=== PATIENT | female | born 1975 | race Hispanic/Latino ===

== ENCOUNTER 2019-07-22 17:09 | Inpatient (IN) | payer SELFPAY ==
[~2019-07-22] VITALS: Ht 167.6 cm; Wt 86.2 kg
[~2019-07-22 17:09] MED LIST: CEFUROXIME250 MG PO; FOLIC ACID1 MG PO; GLIMEPIRIDE4 MG PO; HUMIRA20 MG/0.4 SQ; LOSARTAN POTAS100 MG PO; MAGNESIUM250 MG PO; METHOTREXATE2.5 MG PO; METOPROLOL TART50 MG PO; POTASSIUM99 M1 PO; VITAMIN D31000 UNIT PO
[2019-07-22] MEDS ORDERED: PANTOPRAZOLE 40 MG 10ML VIAL IV STA (17:40)
[2019-07-22] MEDS ORDERED: ONDANSETRON HCL INJ 2MG/ML 2ML 2 MG/ML VIAL IV STA (17:40)
[2019-07-22] MEDS ORDERED: SODIUM CHLORIDE 0.9% 1000ML 1,000 ML IV STA (17:40)
[2019-07-22] MEDS ORDERED: MORPHINE SULFATE INJ 4 MG/ML INJ 1ML IV STA (17:40)
[2019-07-22 18:03] LABS: BILIRUBIN,URINE NEGATIVE (NEGATIVE); CLARITY,URINE SL CLOUDY (CLEAR); COLOR,URINE YELLOW (YELLOW); KETONES,URINE NEGATIVE (NEGATIVE); LEUKOCYTE ESTERASE ,URINE NEGATIVE (NEGATIVE); NITRITE,URINE NEGATIVE (NEGATIVE); PREGNANCY TEST, URINE NEGATIVE (NEGATIVE); PROTEIN,URINE DIPSTICK 1+ (NEGATIVE); URINE UROBILINOGEN 0.2 mg/dL (0.2 - 1)
[2019-07-22 18:04] LABS: BASOPHILS # (AUTO) 0.1 (0.0-0.1); BASOPHILS % 0.2 % (0.0-1.0); EOSINOPHILS # (AUTO) 0.2 (0.0-0.4); EOSINOPHILS % 0.8 % (0.0-6.0); HEMATOCRIT 45.2 % (34.2-44.1); HEMOGLOBIN 15.3 g/dL (12.0-16.0); LYMPHOCYTES # (AUTO) 1.2 (1.0-3.2); LYMPHOCYTES % 5.4 % (18.0-39.1); MEAN CORPUSCULAR HEMOGLOBIN 30.2 pg (28-32); MEAN CORPUSCULAR HGB CONC 33.8 g/dL (31-35); MEAN CORPUSCULAR VOLUME 89.3 fL (81-99); MONOCYTES # (AUTO) 1.1 (0.2-0.8); MONOCYTES % 4.8 % (4.4-11.3); NEUTROPHILS # (AUTO) 19.6 (2.1-6.9); NEUTROPHILS % 88.3 % (38.7-80.0); PLATELET COUNT 360 x10e3/uL (140-360); RED BLOOD COUNT 5.06 x10e6/uL (3.6-5.1); RED CELL DISTRIBUTION WIDTH 14.2 % (11.7-14.4)
[2019-07-22 18:10] LABS: INR 0.9; PROTHROMBIN TIME 12.6 seconds (11.9-14.5)
[2019-07-22 18:11] LABS: PARTIAL THROMBOPLASTIN TIME 26.5 seconds (23.8-35.5)
[2019-07-22 18:19] LABS: ALANINE AMINOTRANSFERASE 29 IU/L (0-55); ALBUMIN 3.8 g/dL (3.5-5.0); ALBUMIN/GLOBULIN RATIO 0.7 (0.8-2.0); ALKALINE PHOSPHATASE 76 IU/L (40-150); AMYLASE 51 U/L (25-125); ANION GAP 14.1 mmol/L (8-16); BLOOD UREA NITROGEN 11 mg/dL (7-26); BUN/CREATININE RATIO 11 (6-25); CARBON DIOXIDE 24 mmol/L (22-29); CHLORIDE 103 mmol/L (98-107); CREATINE KINASE 58 IU/L (29-168); CREATININE, SERUM 0.96 mg/dL (0.57-1.11); EST GLOMERULAR FILTRATION RATE > 60 ML/MIN (60-); GLUCOSE 133 mg/dL (74-118); LIPASE 127 U/L (8-78); POTASSIUM 4.1 mmol/L (3.5-5.1); SODIUM 137 mmol/L (136-145)
[2019-07-22] MEDS ORDERED: DIATRIZOATE MEGL/DIATRIZOA SOD 30 ML BTL PO ONE ×2 (18:21)
--- NOTE | 2019-07-22 18:21 | Diagnostic Imaging Report ---
EXAM: Gallbladder Ultrasound INDICATION: ^ABD PAIN ^Y COMPARISON: None. TECHNIQUE: Transverse and longitudinal images of the gallbladder were obtained. FINDINGS: Liver: Normal appearance measuring 14.3 cm Gallbladder: Stones/Sludge: None Wall: 0.2 cm Appearance: No wall thickening, pericholecystic fluid or hydrops. Sonographic Rapp's Sign: Negative Bile Ducts: Intrahepatic Ducts: No dilatation Extrahepatic Ducts: Common bile duct measures 0.4 cm, no dilatation Main portal vein normal in appearance measuring 0.9 cm with normal blood flow. Right kidney normal in appearance measuring 10.3 cm. Pancreas not well seen. Abdominal aorta and inferior vena cava unremarkable. Free Fluid: No ascites or pleural effusion IMPRESSION: Normal right upper quadrant ultrasound. Signed by: Dr. Brian Núñez M.D. on 07/22/2019 6:17 PM
[2019-07-22 18:37] LABS: AMORPHOUS SEDIMENT,URINE MODERATE (FEW); BACTERIA,URINE FEW /HPF; EPITHELIAL CELLS,URINE FEW /LPF; RBC,URINE 21-50 /HPF (0-5)
[2019-07-22] MEDS ORDERED: LEVOFLOXACIN 500MG/D5W 100ML 100 ML IV ONE (19:15)
[2019-07-22] MEDS ORDERED: METRONIDAZOLE 500MG/NS 100ML 100 ML IV ONE (19:15)
--- NOTE | 2019-07-22 19:58 | Diagnostic Imaging Report ---
EXAMINATION: CHEST SINGLE (PORTABLE) INDICATION: Vomiting. Stomach ache ^ERMD ORDER ^Y COMPARISON: December 19, 2015 FINDINGS: TUBES and LINES: None. LUNGS: Lungs are well inflated. Lungs are clear. There is no evidence of pneumonia or pulmonary edema. PLEURA: No pleural effusion or pneumothorax. HEART AND MEDIASTINUM: The cardiomediastinal silhouette is unremarkable. BONES AND SOFT TISSUES: No acute osseous lesion. Soft tissues are unremarkable. UPPER ABDOMEN: No free air under the diaphragm. IMPRESSION: No acute thoracic abnormality. Signed by: Dr. Brian Núñez M.D. on 07/22/2019 7:32 PM
[2019-07-22] MEDS ORDERED: SODIUM CHLORIDE 0.9% 250ML 250 ML ONE (20:07)
--- NOTE | 2019-07-22 20:10 | Diagnostic Imaging Report ---
EXAM: CT Abdomen and Pelvis WITH contrast INDICATION: Vomiting. Stomach pain. COMPARISON: December 19, 2015 TECHNIQUE: Abdomen and pelvis were scanned utilizing a multidetector helical scanner from the lung base to the pubic symphysis after administration of IV contrast. Coronal and sagittal reformations were obtained. Routine protocol was performed. Scan was performed when during portal venous phase. IV CONTRAST: 100 mL of Isovue 360 ORAL CONTRAST: Gastrografin COMPLICATIONS: None RADIATION DOSE: Total DLP: 683 mGy*cm Estimated effective dose: (DLP x 0.015 x size factor) mSv CTDIvol has been reviewed. It is below the limits set by the Radiation Protocol Committee (RPC). Dose modulation, iterative reconstruction, and/or weight based adjustment of the mA/kV was utilized to reduce the radiation dose to as low as reasonably achievable. FINDINGS: LINES and TUBES: None. LOWER THORAX: Unremarkable HEPATOBILIARY: No focal hepatic lesions. No biliary ductal dilation. GALLBLADDER: No radio-opaque stones or sludge. No wall thickening. SPLEEN: No splenomegaly. PANCREAS: No focal masses or ductal dilatation. ADRENALS: 1.3 cm right adrenal nodule likely adenoma. KIDNEYS/URETERS: Kidneys enhance symmetrically. No hydronephrosis. No cystic or solid mass lesions. No stones. GI TRACT: No abnormal distention, wall thickening, or evidence of bowel obstruction. Scattered diverticulosis without evidence of diverticulitis. The appendix is not clearly seen however, no inflammatory changes are seen in the right lower quadrant of the abdomen. PELVIC ORGANS/BLADDER: Heterogeneous uterus likely containing fibroids. LYMPH NODES: No lymphadenopathy. VESSELS: Unremarkable. PERITONEUM / RETROPERITONEUM: No free air or fluid. BONES: Unremarkable. SOFT TISSUES: Unremarkable. IMPRESSION: Scattered diverticulosis without evidence of diverticulitis. The appendix is not clearly seen however, no inflammatory changes are seen in the right lower quadrant of the abdomen. Heterogeneous uterus likely containing fibroids. Signed by: Dr. Brian Núñez M.D. on 07/22/2019 8:07 PM
[2019-07-22] MEDS ORDERED: MORPHINE SULFATE 2 MG/ML SYR 1ML IV PRN (20:15)
[2019-07-22] MEDS: SODIUM CHLORIDE 0.9% 1000ML 1,000 ML IV SCH (20:58)
[2019-07-22] MEDS: PIPER-TAZ 3.375 GM 50 ML IV SCH (20:58)
--- OUTSIDE RECORDS SUMMARY | 2019-07-22 21:25 | XMS REPORT ---
Author Author [facility], [place] Address Unknown Phone Unavailable Care Team Providers Care Veneer Stacker Name Role Phone STOKESPRAKASH Unavailable Unavailable Problems This patient has no known problems. Allergies, Adverse Reactions, Alerts This patient has no known allergies or adverse reactions. Medications This patient has no known medications. Results Test Description Test Time Test Comments Text Results Atomic Results Result Comments CT ABDOMEN/PELVIS W 2019-07-22 19:59:00 [place] [id number] [place] [id number] Patient Name: ELIDA VALENZUELA MR #: [id number] : 1975 Age/Sex: 43/F Req #: [id number] Adm Physician: Ordered by: PRAKASH VARELA HAND [employer]NEL [employer]ATER Report #: [id number] Location: ER Room/Bed: Procedure: [id number] CT/CT ABDOMEN/PELVIS W Exam Date: Exam Time: REPORT STATUS: Signed EXAM: CT Abdomen and Pelvis WITH contrast INDICATION: Vomiting. S tomach pain. COMPARISON: December 19, 2015 TECHNIQUE: Abdomen and pelvis were scanned utilizing a multidetector helical scanner from the lung base to the pubic symphysis after administration of IV contrast. Coronal and sagittal reformations were obtained. Routine protocol was performed. Scan was performed when during portal venous phase. IV CONTRAST: 100 mL of Isovue 360 ORAL CONTRAST: Gastrografin COMPLICATIONS: None RADIATION DOSE: Total DLP: 683 mGy*cm Estimated effective dose: (DLP x 0.015 x size factor) mSv CTDIvol has been reviewed. It is below the limits set by the Radiation Protocol Committee (RPC). Dose modulation, iterative reconstruction, and/or weight based adjustment of the mA/kV was utilized to reduce the radiation dose to as low as reasonably achievable. FINDINGS: LINES and TUBES: None. LOWER THORAX: Unremarkable HEPATOBILIARY: No focal hepatic lesions. No biliary ductal dilation. GALLBLADDER: No radio-opaque stones or sludge. No wall thickening. SPLEEN: No splenomegaly. PANCREAS: No focal masses or ductal dilatation. ADRENALS: 1.3 cm right adrenal nodule likely adenoma. KIDNEYS/URETERS: Kidneys enhance symmetrically. No hydronephrosis. No cystic or solid mass lesions. No stones. GI TRACT: No abnormal distention, wall thickening, or evidence of bowel obstruction. Scattered diverticulosis without evidence of diverticulitis. The appendix is not clearly seen however, no inflammatory changes are seen in the right lower quadrant of the abdomen. PELVIC ORGANS/BLADDER: Heterogeneous uterus likely containing fibroids. LYMPH NODES: No lymphadenopathy. VESSELS: Unremarkable. PERITONEUM / RETROPERITONEUM: No free air or fluid. BONES: Unremarkable. SOFT TISSUES: Unremarkable. IMPRESSION: Scattered diverticulosis without evidence of diverticulitis. The appendix is not clearly seen however, no inflammatory changes are seen in the right lower quadrant of the abdomen. Heterogeneous uterus likely containing fibroids. Signed by: Dr. Brian Núñez M.D. on 07/22/2019 8:07 PM Dictated By: BRIAN NÚÑEZ MD, MD 06 Transcribed By: NICO on 07/22/192006 COPY TO: PRAKASH VARELA [employer]ATER CHEST SINGLE (PORTABLE) 2019-07-22 19:31:00 [place] [address] Patient Name: ELIDA VALENZUELA MR #: [id number] : 1975 Age/Sex: 43/F Req #: [id number] Adm Physician: Ordered by: PRAKASH VARELA NP Report #: [id number] Location: ER Room/Bed: Procedure: DX/CHEST SINGLE (PORTABLE) Exam Date: Exam Time: REPORT STATUS: Signed EXAMINATION: CHEST SINGLE (PORTABLE) INDICATION: Vomiting. Stomach ache ERMD ORDER Y COMPARISON: December 19, 2015 FINDINGS: TUBES and LINES: None. LUNGS: Lungs are well inflated. Lungs are clear. There is no evidence of pneumonia or pulmonary edema. PLEURA: No pleural effusion or pneumothorax. HEART AND MEDIASTINUM: The cardiomediastinal silhouette is unremarkable. BONES AND SOFT TISSUES: No acute osseous lesion. Soft tissues are unremarkable. UPPER ABDOMEN: No free air under the diaphragm. IMPRESSION: No acute thoracic abnormality. Signed by: Dr. Brian Núñez M.D. on 07/22/2019 7:32 PM Dictated By: BRIAN NÚÑEZ MD, MD 31 Transcribed By: NICO on 07/22/191931 COPY TO: PRAKASH VARELA [employer]ATER [facility] 2019-07-22 18:15:00 [place] [address] Patient Name: ELIDA VALENZUELA MR #: [id number] : 1975 Age/Sex: 43/F Req #: [id number] Adm Physician: Ordered by: PRAKASH VARELA HAND [employer]ATER Report #: [id number] Location: ER Room/Bed: Procedure: [id number] US/US GALLBLADDER Exam Date: 07/22/19 Exam Time: 1750 REPORT STATUS: Signed EXAM: Gallbladder Ultrasound INDICATION: ABD PAIN Y COMPARISON: None. TECHNIQUE: Transverse and longitudinal images of the gallbladder were obtained. FINDINGS: Liver: Normal appearance measuring 14.3 cm Gallbladder: Stones/Sludge: None Wall: 0.2 cm Appearance: No wall thickening, pericholecystic fluid or hydrops. Sonographic Rapp's Sign: Negative Bile Ducts: Intrahepatic Ducts: No dilatation Extrahepatic Ducts: Common bile duct measures 0.4 cm, no dilatation Main portal vein normal in appearance measuring 0.9 cm with normal blood flow. Right kidney normal in appearance measuring 10.3 cm. Pancreas not well seen. Abdominal aorta and inferior vena cava unremarkable. Free Fluid: No ascites or pleural effusion IMPRESSION: Normal right upper quadrant ultrasound. Signed by: Dr. Brian Núñez M.D. on 07/22/2019 6:17 PM Dictated By: BRIAN NÚÑEZ MD, MD 16 Transcribed By: NICO on 07/22/191816 COPY TO: PRAKASH VARELA NP
[2019-07-22] MEDS: MORPHINE SULFATE INJ 4 MG/ML INJ 1ML IV PRN (22:20)
[2019-07-22] MEDS: ONDANSETRON HCL INJ 2MG/ML 2ML 2 MG/ML VIAL IV PRN (22:20)
[2019-07-23] MEDS ORDERED: IOPAMIDOL 370 MG/ML 200 ML INFUS..BTL INJ ONE (02:08)
[2019-07-23] MEDS ORDERED: SODIUM CHLORIDE 0.9% 50ML 50 ML ONE (02:08)
[2019-07-23] MEDS: MORPHINE SULFATE INJ 4 MG/ML INJ 1ML IV PRN ×2 (02:20→13:57)
[2019-07-23] MEDS: ONDANSETRON HCL INJ 2MG/ML 2ML 2 MG/ML VIAL IV PRN ×3 (02:20→13:58)
[2019-07-23] MEDS: SODIUM CHLORIDE 0.9% 1000ML 1,000 ML IV SCH ×3 (05:17→20:06)
--- NOTE | 2019-07-23 05:43 | NUR ---
H&P cc: nausea/vomiting/abdominal pain HPI: 44yoF, PCP , developed N/V/abdominal pain with N/V/D for 1 day. PMH: PNA, DM2, Diverticulosis, rheumatoid arthritis PShx: none Allergies; see emr Fh/Sh; single; no etoh/cigs Meds; see MAR ROS: no f/c/s/cp/sob/skin rash/dizziness/leg pain v/s; revd PE tired appearing anicteric ns1s2 mod bs soft; tender epigastrium no e/t skin dry n. affect labs/meds; revd A/P: 44yoF Acute gastroenteritis- bacterial- abx/ivf DM2- hab1c/lipids Diverticulosis- high fiber diet Rheumatoid arthritis- f/u outpt Obesity- caloric restriction needed BMI 30 Prop; scd; ppi Dispo; Chirag Paulino MD, PhD.
[2019-07-23] MEDS: METRONIDAZOLE 500MG/NS 100ML 100 ML IV SCH ×3 (06:30→22:00)
[2019-07-23 06:55] LABS: BASOPHILS % 0.2 % (0.0-1.0); EOSINOPHILS # (AUTO) 0.1 (0.0-0.4); EOSINOPHILS % 0.5 % (0.0-6.0); HEMATOCRIT 35.4 % (34.2-44.1); LYMPHOCYTES # (AUTO) 1.6 (1.0-3.2); LYMPHOCYTES % 12.2 % (18.0-39.1); MEAN CORPUSCULAR HEMOGLOBIN 30.6 pg (28-32); MEAN CORPUSCULAR HGB CONC 33.9 g/dL (31-35); MEAN CORPUSCULAR VOLUME 90.3 fL (81-99); MONOCYTES # (AUTO) 0.9 (0.2-0.8); MONOCYTES % 7.2 % (4.4-11.3); NEUTROPHILS # (AUTO) 10.2 (2.1-6.9); NEUTROPHILS % 79.4 % (38.7-80.0); PLATELET COUNT 263 x10e3/uL (140-360); RED BLOOD COUNT 3.92 x10e6/uL (3.6-5.1); RED CELL DISTRIBUTION WIDTH 14.4 % (11.7-14.4)
--- NOTE | 2019-07-23 07:03 | NUR ---
DR PURDY AT PT BEDSIDE
[2019-07-23 07:14] LABS: ALANINE AMINOTRANSFERASE 40 IU/L (0-55); ALBUMIN 2.8 g/dL (3.5-5.0); ALBUMIN/GLOBULIN RATIO 0.7 (0.8-2.0); ALKALINE PHOSPHATASE 51 IU/L (40-150); ANION GAP 10.4 mmol/L (8-16); BLOOD UREA NITROGEN 9 mg/dL (7-26); BUN/CREATININE RATIO 11 (6-25); CALCIUM 8.2 mg/dL (8.4-10.2); CARBON DIOXIDE 23 mmol/L (22-29); CHLORIDE 106 mmol/L (98-107); EST GLOMERULAR FILTRATION RATE > 60 ML/MIN (60-); GLUCOSE 122 mg/dL (74-118); POTASSIUM 4.4 mmol/L (3.5-5.1); SODIUM 135 mmol/L (136-145)
[2019-07-23] MEDS: PIPER-TAZ 3.375 GM 50 ML IV SCH ×3 (07:43→20:58)
[2019-07-23 08:09] LABS: CHOL/HDL RATIO 3.8 (3.0-3.6)
[2019-07-23] MEDS: PANTOPRAZOLE 40 MG 10ML VIAL IV SCH (09:36)
[2019-07-23] MEDS: METOPROLOL TARTRATE 50 MG TAB PO SCH ×2 (09:36→17:00)
--- NOTE | 2019-07-23 12:15 | NUR ---
RCD PT FROM ER BY BED PT IS ALERT AND ORIENTED VITALS CHECKED PT RESTING ON BED ADMISSION ASSESSMENT DONE PT SAID SHE STARTED THE ABDOMINAL PAIN ON YESTURDAY ON THE MEDIAL PART OF THE ABDOMEN HAD BOWEL MOVEMENT ON YESTURDAY SHE VOIDED IV PATENT AND RUNNING 125 ML /HR PT NPO INSTRUCTED PT AND FAMILY REGARDING HOSPITAL POLICY AND ROUTINE BED LOW AND LOCKED CALL LIGHT IN REACH
[2019-07-23 12:53] VITALS: BP 113/65
[2019-07-23 13:41] VITALS: BP 113/65
[2019-07-23 13:49] VITALS: BP 113/65
[2019-07-23 16:24] VITALS: BP 122/70
[2019-07-23 17:24] LABS: BASOPHILS % 0.1 % (0.0-1.0); EOSINOPHILS # (AUTO) 0.2 (0.0-0.4); EOSINOPHILS % 2.3 % (0.0-6.0); HEMATOCRIT 37.3 % (34.2-44.1); HEMOGLOBIN 12.3 g/dL (12.0-16.0); LYMPHOCYTES # (AUTO) 1.4 (1.0-3.2); LYMPHOCYTES % 14.8 % (18.0-39.1); MEAN CORPUSCULAR HEMOGLOBIN 30.1 pg (28-32); MEAN CORPUSCULAR VOLUME 91.4 fL (81-99); MONOCYTES # (AUTO) 0.9 (0.2-0.8); MONOCYTES % 9.5 % (4.4-11.3); NEUTROPHILS # (AUTO) 6.8 (2.1-6.9); NEUTROPHILS % 72.7 % (38.7-80.0); PLATELET COUNT 252 x10e3/uL (140-360); RED BLOOD COUNT 4.08 x10e6/uL (3.6-5.1); RED CELL DISTRIBUTION WIDTH 14.4 % (11.7-14.4)
--- NOTE | 2019-07-23 17:30 | NUR ---
PAGED AND NOTIFIED THE [facility] REPORT TO DR PURDY THERE IS NO NEW ORDERS
--- NOTE | 2019-07-23 18:18 | NUR ---
PT C/O HEAD ACHE AND SHE NEED TO EAT PAGED AND NOTIFIED DR PURDY GOT NEW ORDERS
[2019-07-23] MEDS: ACETAMINOPHEN 325 MG TAB PO PRN (18:35)
--- NOTE | 2019-07-23 18:43 | NUR ---
PT RESTING ON BED BED SIDE REPORT GIVEN TO ONCOMING NURSE
[2019-07-23 20:00] VITALS: BP 130/70
[2019-07-23 21:00] VITALS: BP 127/76
[2019-07-24] VITALS: BP 97/56
[2019-07-24] MEDS: PIPER-TAZ 3.375 GM 50 ML IV SCH ×2 (02:00→08:00)
[2019-07-24 04:00] VITALS: BP 100/55
[2019-07-24] MEDS: SODIUM CHLORIDE 0.9% 1000ML 1,000 ML IV SCH (04:06)
[2019-07-24] MEDS: METRONIDAZOLE 500MG/NS 100ML 100 ML IV SCH (06:00)
[2019-07-24] MEDS ORDERED: FLAGYL500 MG PO (06:50)
[2019-07-24] MEDS ORDERED: KEFLEX500 MG PO (06:50)
[2019-07-24] MEDS ORDERED: ZOFRAN4 MG PO (06:50)
--- NOTE | 2019-07-24 06:52 | NUR ---
D/C summary Principal Dx: Acute gastroenteritis- bacterial- abx/ivf Secondary dx: DM2- hab1c/lipids Diverticulosis- high fiber diet Rheumatoid arthritis- f/u outpt Obesity- caloric restriction needed BMI 30 Prop; scd; ppi Dispo; Hba1c 6.6; leukocytosis resolved; tolerating diet. d/c home f/u pcp 1 week stable d/c >35mins Chirag Paulino MD, PhD.
[2019-07-24] MEDS: ACETAMINOPHEN 325 MG TAB PO PRN (07:00)
--- NOTE | 2019-07-24 07:10 | NUR ---
RCD PT AT BED PT IS ALERT AND ORIENTED ASSESSMENT DONE PT RESTING ON BED NO SIGNS OF ANY DISTRESS NOTED IV PATENT BED LOW AND LOCKED CALL LIGHT IN REACH
[2019-07-24 08:00] VITALS: BP 112/54
[2019-07-24] MEDS: METOPROLOL TARTRATE 50 MG TAB PO SCH (08:41)
[2019-07-24] MEDS: PANTOPRAZOLE 40 MG 10ML VIAL IV SCH (08:41)
[2019-07-24 09:00] VITALS: BP 112/54
--- NOTE | 2019-07-24 09:44 | NUR ---
PT WENT HOME IN SAFE CONDITION WITH HER FRIEND
== END 2019-07-24 09:49 | disposition home or self-care (01) | DRG 373 ==
LOC: ER 17:09 → ERHOLD 21:23 → MED/SURG2 07-23 12:43
PROVIDERS: ADMIT Internal Medicine; ATTEND Internal Medicine
DX: A04.9 Bacterial intestinal infection, unspecified (principal); M06.9 Rheumatoid arthritis, unspecified; E11.9 Type 2 diabetes mellitus without complications; K57.90 Diverticulosis of intestine, part unspecified, without perforation or abscess without bleeding; E66.9 Obesity, unspecified; Z68.30 Body mass index [BMI] 30.0-30.9, adult
CPT/HCPCS: 36415; 71045; 74177; 76705; 80053; 80061; 81001; 81025; 82150; 82550; 82553; 82948; 83036; 83690; 84484; 85025; 85610; 85730; 93005; 99284; J1956; J2270; J2405; J2543; J7030; J7050; Q9967